=== PATIENT | male | born 1980 | race American Indian/Alaskan Native ===

== ENCOUNTER 2016-12-17 05:00 | Emergency (ER) | payer SELFPAY ==
--- NOTE | 2016-12-17 10:03 | Cat Scan Report ---
CT HEAD WITHOUT CONTRAST:12/17/16 09:47 CLINICAL: Fall with laceration above left eye. TECHNIQUE: 2.5-mm noncontrast scans. COMPARISON:None FINDINGS: The ventricles and sulci are normal for age. No abnormal hypodensity. No mass or mass effect. No hemorrhage, edema or extra-axial collection. The sinuses are clear. Very mild left supraorbital soft tissue edema. No foreign body. The orbits are intact. The calvarium, imaged portions of the facial bones and skull base are intact. IMPRESSION: Mild left supraorbital soft tissue injury but otherwise normal.
--- NOTE | 2016-12-17 11:50 | Emergency Department Report ---
HPI - General Chief Complaint: Wound/Laceration Time Seen by Provider: 12/17/16 11:18 - HPI HPI: Patient is 36-year-old -[place] male was drinking alcohol, fell and hit the left side of his face, suffered laceration right above the eyebrow. The patient denies any loss of consciousness, no neck pain no facial pain. Patient has been in the emergency room for 6 hours and is no longer intoxicated. He is alert and oriented and answering questions without difficulties. ED Past Medical Hx - Past Medical History Previous Medical History?: No - Surgical History Past Surgical History?: No - Family History Family history: hypertension - Social History Smoking Status: Current Every Day Smoker Substance Use Type: Alcohol - Medications Home Medications: Home Medications Medication Instructions Recorded Confirmed Last Taken Type Mupirocin 1 gm TP ACHS #1 oin.pf.sammi 12/17/16 Unknown Rx ED Review of Systems ROS: Stated complaint: LACERATION TO LT EYE Other details as noted in HPI Comment: All other systems reviewed and negative ENT: as per HPI Respiratory: no symptoms reported Cardiovascular: as per HPI Physical Exam - Physical Exam Vital Signs: Vital Signs 12/17/16 05:59 Temperature 97.7 F Pulse Rate 85 Respiratory 18 Rate Blood Pressure 135/97 O2 Sat by Pulse 99 Oximetry Physical Exam: Physical Exam: - General Limitations: No Limitations General appearance: alert, in no apparent distress - Head Head exam: Present: Left supraorbital laceration 2 inches long, hemostatic. - Eye Eye exam: Present: normal appearance - ENT ENT exam: Present: mucous membranes moist - Neck Neck exam: Present: normal inspection - Respiratory Respiratory exam: Present: normal lung sounds bilaterally. Absent: respiratory distress - Cardiovascular Cardiovascular Exam: Present: normal rhythm, tachycardia. Absent: systolic murmur, diastolic murmur, rubs, gallop - GI/Abdominal GI/Abdominal exam: Present: soft, normal bowel sounds - Extremities Exam Extremities exam: Present: normal inspection - Back Exam Back exam: Present: normal inspection - Neurological Exam Neurological exam: Present: alert, oriented X3, - Skin Skin exam: Present: warm, dry, intact, normal color. Absent: rash ED Course Vital Signs 12/17/16 05:59 Temperature 97.7 F Pulse Rate 85 Respiratory 18 Rate Blood Pressure 135/97 O2 Sat by Pulse 99 Oximetry Critical care attestation.: If time is entered above; I have spent that time in minutes in the direct care of this critically ill patient, excluding procedure time. ED Disposition Clinical Impression: Simple laceration of face Qualifiers: Encounter type: initial encounter Qualified Code(s): S01.81XA - Laceration without foreign body of other part of head, initial encounter Disposition: TO HOME OR SELFCARE Is pt being admited?: No Does the pt Need Aspirin: No Condition: Stable Prescriptions: Mupirocin 1 gm TP ACHS #1 oin.pf.sammi Referrals: PRIMARY CARE, [Primary Care Provider] - 3-5 Days
[2016-12-17] MEDS ORDERED: TRIPLE ANTIBIOTIC TP ONE (11:58)
[2016-12-17] MEDS ORDERED: NACL 0.9% 500 ML IR ONE (11:58)
[2016-12-17] MEDS ORDERED: XYLOCAINE 2% INFILTRATI ONE (12:01)
[2016-12-17 12:42] VITALS: BP 131/85
== END 2016-12-17 12:45 | disposition home or self-care (01) ==
LOC: ED 05:00
DX: S01.81XA Laceration without foreign body of other part of head, initial encounter (principal); F17.200 Nicotine dependence, unspecified, uncomplicated; W18.30XA Fall on same level, unspecified, initial encounter; Y93.9 Activity, unspecified; Y92.9 Unspecified place or not applicable; Y99.9 Unspecified external cause status
CPT/HCPCS: 36415; 70450; 99284; G0480; 80320; A6250